=== PATIENT | male | born 1950 | race Caucasian/White ===

== ENCOUNTER → 2016-12-22 | Outpatient (CLI) | payer OTHER | LOC: FIMAGING 11:47 | PROVIDERS: ATTEND Orthopaedic Surgery Orthopaedic Surgery of the Spine | DX: M51.36 Other intervertebral disc degeneration, lumbar region (principal); M47.896 Other spondylosis, lumbar region ==

== ENCOUNTER 2017-01-05 10:16 | Emergency (ER) | payer OTHER ==
--- NOTE | 2017-01-05 11:20 | EDPHY ---
H & P Time Seen by Provider: 01/05/17 10:39 HPI/ROS: CHIEF COMPLAINT: Scalp laceration HISTORY OF PRESENT ILLNESS: 66-year-old male presents emergency department with a laceration to the left frontal scalp. Patient was in his backyard bent over when he stood up into a wooden corner of a shed. Patient denies loss of consciousness, no dizziness, lightheadedness, blurred vision. He denies neck pain. Tetanus is up-to-date. He denies other complaints. Patient takes aspirin daily, no other anticoagulants. REVIEW OF SYSTEMS: A comprehensive 10 point review of systems is otherwise negative aside from elements mentioned in the history of present illness. Smoking Status: Never smoked Physical Exam: GEN: Awake, alert, oriented, no acute distress RESP: nl resp effort MSK: No C-spine tenderness Neuro: Grossly intact SKIN: 4 cm superficial laceration to left frontal scalp Constitutional: Initial Vital Signs Temperature (C) 36.4 C 01/05/17 10:23 Heart Rate 71 01/05/17 10:23 Respiratory Rate 20 01/05/17 10:23 Blood Pressure 143/76 H 01/05/17 10:23 O2 Sat (%) 96 01/05/17 10:23 O2 Delivery Mode Room Air Allergies/Adverse Reactions: brimonidine [From Combigan] Allergy (Verified 01/05/17 10:23) brinzolamide [From Azopt] Allergy (Verified 01/05/17 10:23) timolol [From Combigan] Allergy (Verified 01/05/17 10:23) Home Medications: Medication Instructions Recorded Aspirin [Aspirin 81mg (*)] 81 mg PO DAILY 01/02/17 Atorvastatin Calcium [Lipitor 10 10 mg PO DAILY 01/02/17 mg (*)] Cyanocobalamin [Vitamin B12 (*)] 100 mcg PO DAILY 01/02/17 Eszopiclone [Lunesta] 2 mg PO HS 01/02/17 Herbals/Supplements -Info Only 1 ea PO DAILY 01/02/17 LORazepam [Ativan (*)] 0.5 - 1 mg PO HS PRN 01/02/17 Multivitamins [Multivitamin (*)] 1 each PO DAILY 01/02/17 Pregabalin [Lyrica] 200 mg PO HS 01/02/17 Medical Decision Making Procedures: Procedure: Laceration repair. Verbal consent was obtained from the patient. The 4 cm laceration on the left frontal scalp was anesthetized using 1% lidocaine with epinephrine. The wound was carefully irrigated by the emergency department auto electrical technician. Next, the wound was prepped and draped in sterile fashion and explored to its base with a gloved finger. There were no deep structures involved. No vascular injury was identified. No foreign bodies were identified. The wound was repaired with 4.0 Prolene, 8 simple interrupted sutures. The wound repair was simple. The procedure was performed by myself. Tetanus and antibiotic status were addressed. ED Course/Re-evaluation: This patient presents after a minor head injury with no headache, amnesia or LOC. Neurologic exam normal. No indication for neuro imaging. CHI precautions given. Differential Diagnosis: The differential diagnosis for the patient's head injury included but was not limited to concussion, skull fracture, intra-parenchymal contusion, subarachnoid , subdural and epidural hematoma. Departure - Departure Disposition: Home, Routine, Self-Care Clinical Impression: Laceration of scalp Qualifiers: Encounter type: initial encounter Qualified Code(s): S01.01XA - Laceration without foreign body of scalp, initial encounter Minor head injury without loss of consciousness Qualifiers: Encounter type: initial encounter Qualified Code(s): S09.90XA - Unspecified injury of head, initial encounter Condition: Good Instructions: Laceration (ED), Head Injury (ED) Additional Instructions: Return to the emergency department in 7 days for suture removal, return sooner for any forceful vomiting, confusion, blurred vision, seizure-like activity, altered gait, any other symptoms or concerns. Keep pressure dressing in place for 24 hours. Referrals: Aakash Will MD [Primary Care Provider] - Follow Up Only If Needed
[2017-01-05 12:51] VITALS: BP 110/71; PULSE 67; RESP 16; TEMP 98.1; O2SAT 95
== END 2017-01-12 12:49 | disposition home or self-care (01) ==
PROC: 0HQ0XZZ Repair Scalp Skin, External Approach (ICD-10-PCS; principal; 2017-01-05)
DX: S01.01XA Laceration without foreign body of scalp, initial encounter (principal); Z79.82 Long term (current) use of aspirin; W22.8XXA Striking against or struck by other objects, initial encounter; Y92.096 Garden or yard of other non-institutional residence as the place of occurrence of the external cause

== ENCOUNTER 2017-05-23 11:13 | Emergency (ER) | payer OTHER ==
[2017-05-23 11:20] VITALS: RESP 18; TEMP 98.1
--- NOTE | 2017-05-23 11:45 | EDPHY ---
H & P Stated Complaint: R arm soreness~couple of wks after overuse;exacerbated yesterday Time Seen by Provider: 05/23/17 11:45 HPI/ROS: HPI: This is a 66-year-old male who presents with Chief Complaint: Right bicep pain Location: Right biceps Quality: Pain Duration: 2 weeks Signs and Symptoms: No bleeding, no radiation, no numbness, + weakness, no tingling, no incontinence, + decreased range of motion Timing: Sudden, gradually worsening Severity: Moderate Context: Patient complains of right biceps pain with decreased range of motion especially extension over the last 2 weeks. He was working in the [employer] 2 weeks ago using hand clippers and felt right bicep pain. Yesterday he had worsening of the pain and decreased range of motion following exercise. He is right-hand dominant. Modifying Factors: Has not tried any [id number] medications Comment: ROS: Constitutional: No fever, no chills, no weight loss Eyes: No blurred vision Respiratory: No shortness of breath, no cough Cardiovascular: No chest pain Gastrointestinal: No nausea, no vomiting no diarrhea Genitourinary: No dysuria Extremities: No myalgias Neurologic: No weakness, no numbness Skin: No rashes Hematologic: No bruising, no bleeding Source: Patient Exam Limitations: No limitations - Personal History Current Tetanus Diphtheria and Acellular Pertussis (TDAP): Yes - Medical/Surgical History Hx Asthma: No Hx Chronic Respiratory Disease: No Hx Diabetes: No Hx Cardiac Disease: No Hx Renal Disease: No Hx Cirrhosis: No Hx Alcoholism: No Hx HIV/AIDS: No Hx Splenectomy or Spleen Trauma: No Other PMH: orthostatic hypotension. glaucoma - Social History Smoking Status: Never smoked - Physical Exam Exam: CONSTITUTIONAL: Pleasant elderly white male, awake and alert, no obvious distress HEENT: Atraumatic and normocephalic, PERRL, EOMI. Tympanic membranes clear. . Oropharynx clear, no exudate and moist pink mucosa. Airway patent. No lymphadenopathy. No meningismus. Cardiovascular: Normal S1/S2, regular rate, regular rhythm, without murmur rub or gallop. PULMONARY/CHEST: Symmetrical and nontender. Clear to auscultation bilaterally Good air movement. No accessory muscle usage. ABDOMEN: Soft, nondistended, nontender, no rebound, no guarding, no peritoneal signs, no masses or organomegaly. No CVAT. EXTREMITIES: 2/2 pulses, right elbow flexion and extension elicits pain; no proximal swelling noted over bicipital groove but he is tender over the bicipital groove. No swelling or tenderness over the antecubital fossa. Deltoid strength intact. no deformities, no clubbing, no cyanosis or edema. NEUROLOGICAL: no focal neuro deficits. GCS 15. SKIN: Warm and dry, no erythema. no rash. Good capillary refill. Constitutional: Initial Vital Signs Temperature (C) 36.7 C 05/23/17 11:14 Heart Rate 60 05/23/17 11:14 Respiratory Rate 18 05/23/17 11:14 Blood Pressure 138/75 H 05/23/17 11:14 O2 Sat (%) 98 05/23/17 11:14 O2 Delivery Mode Room Air Allergies/Adverse Reactions: brimonidine [From Combigan] Allergy (Mild, Verified 05/23/17 11:22) local reaction brinzolamide [From Azopt] Allergy (Mild, Verified 05/23/17 11:22) local reaction timolol [From Combigan] Allergy (Mild, Verified 05/23/17 11:22) local reaction Home Medications: Medication Instructions Recorded Aspirin [Aspirin 81mg (*)] 81 mg PO DAILY 01/02/17 Atorvastatin Calcium [Lipitor 10 10 mg PO DAILY 01/02/17 mg (*)] Cyanocobalamin [Vitamin B12 (*)] 100 mcg PO DAILY 01/02/17 Eszopiclone [Lunesta] 2 mg PO HS 01/02/17 LORazepam [Ativan (*)] 0.5 - 1 mg PO HS PRN 01/02/17 Pregabalin [Lyrica] 200 mg PO HS 01/02/17 oxyCODONE/APAP 5/325 [Percocet 1 - 2 tab PO Q4H PRN #20 tab 05/23/17 5/325 (*)] Medical Decision Making - Diagnostics Imaging Results: Imaging Impressions Extremity Venous Study 05/23/17 11:44 Impression: No deep venous thrombosis right arm. Findings and recommendations discussed with Emergency Department physician, Alysia Goodman at 12:41 hour, 05/23/2017. Final report concurs with initial preliminary interpretation. Humerus X-Ray 05/23/17 11:46 Impression: No fracture of the right humerus. ED Course/Re-evaluation: X-ray ordered to rule out avulsion fracture Ultrasound ordered to evaluate biceps tendon rupture Offered NSAID and muscle relaxer and patient politely declined No signs of neurovascular compromise/tenting of skin/compartment syndrome/ extremities and joints examined above and below area of concern and are neurovascularly intact. Called by Radiology and ultrasound shows no evidence of DVT; unable to obtain musculoskeletal ultrasound. Will treat as a biceps tendon rupture; Placed in sling, RICE, Ortho referral. May need MRI outpatient for further evaluation. Differential Diagnosis: Differential diagnosis includes biceps tendon rupture, biceps tendinitis, calcific tendinitis Departure - Departure Disposition: Home, Routine, Self-Care Clinical Impression: Rupture of right biceps tendon Qualifiers: Encounter type: initial encounter Qualified Code(s): S46.211A - Strain of muscle, fascia and tendon of other parts of biceps, right arm, initial encounter Condition: Good Instructions: Tendon Rupture (ED) Additional Instructions: Wear sling 24/7 to limit use of your right upper extremity. Take ibuprofen 600-800 mg every 6-8 hours with food as needed for pain and inflammation. Take Percocet 1-2 tabs every 4-6 hours as as needed for severe or breakthrough pain. Apply ice for 30 minutes at a time; 2-3 times per day for the next 1-2 days. Follow up with Orthopedics in 5-7 days at which time they will evaluate and recommend with you if conservative management versus surgery is indicated. The x-rays obtained in the emergency department today demonstrate no evidence of an obvious fracture. Sometimes fractures are not obvious on the initial set of x-rays performed in the ED. For this reason, you should have repeat x-rays performed in 7-10 days if you are having any pain exclude the possibility of an occult fracture. Referrals: [place] Tristan MD [Medical Doctor] - As per Instructions Prescriptions: oxyCODONE/APAP 5/325 [Percocet 5/325 (*)] 1 - 2 tab PO Q4H PRN #20 tab PRN Reason: Pain, Severe
[2017-05-23 13:12] VITALS: BP 134/64; PULSE 64; O2SAT 95
== END 2017-05-23 13:12 | disposition home or self-care (01) ==
DX: S46.211A Strain of muscle, fascia and tendon of other parts of biceps, right arm, initial encounter (principal); X50.3XXA Overexertion from repetitive movements, initial encounter; Y92.096 Garden or yard of other non-institutional residence as the place of occurrence of the external cause; Y99.8 Other external cause status; Y93.89 Activity, other specified; Z79.82 Long term (current) use of aspirin
CPT/HCPCS: 73060; 93971; 99284; A4565